=== PATIENT | male | born 2000 | race Caucasian/White ===

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

== ENCOUNTER 2021-07-10 12:16 | Outpatient (CLI) | payer OTHER, SELFPAY ==
--- NOTE | ~2021-07-10 | XR_ITS ---
XR chest 2V DATE: 07/10/2021 12:29 INDICATION: Generalized enlarged lymph nodes TECHNIQUE: PA and lateral views COMPARISON: December 06, 2021 view chest FINDINGS: Bilateral hyperinflation suggesting obstructive airways disease. Normal heart size. No hilar or mediastinal enlargement. No pulmonary infiltrate or consolidation, ple ural effusion or pulmonary vascular congestion or pneumothorax. Mild dextroscoliosis of the thoracic spine. IMPRESSION: Bilateral hyperinflation Reviewed, dictated and finalized at location B. IMPRESSION: Bilateral hyperinflation
== END 2021-07-10 12:17 | disposition home or self-care (01) ==
PROVIDERS: PCP Family Medicine; Visit Provider Physician Assistant
DX: R59.1 Generalized enlarged lymph nodes (principal); R91.8 Other nonspecific abnormal finding of lung field
CPT/HCPCS: 71046